=== PATIENT | female | born 1980 ===

== ENCOUNTER 2016-12-11 18:57 | Emergency (ER) | payer SELFPAY ==
[2016-12-11 19:56] VITALS: BP 105/69; PULSE 65; RESP 16; TEMP 98.1; O2SAT 99
--- NOTE | 2016-12-11 20:29 | ED PDOC ---
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 Patient states in the middle of October she was treated for yeast infection with Diflucan and symptoms did resolve. They returned as of a week and a half ago. Patient went to her road design engineer last week and was tested for several STDs and she gets the results on Wednesday. Patient was given rx for terconazole cream, oral flagyl and bactrim but she still has persistent itching. Patient denies any genital rash or sores. She states she is currently sexually active with 1 partner and she has low concern for STD. She denies any abdominal pain, no fever or chills. No N/V/D/C. Patient denies any vaginal pain. Past Medical History Reviewed: Historical Data, Nursing Documentation, Vital Signs Vital Signs: Last Vital Signs Temp 98.1 F 12/11/16 19:54 Pulse 65 12/11/16 19:54 Resp 16 12/11/16 19:54 BP 105/69 12/11/16 19:54 Pulse Ox 99 12/11/16 19:54 - Medical History PMH: No Chronic Diseases - Surgical History Surgical History: No Surg Hx - Family History Family History: States: No Known Family Hx - Living Arrangements Living Arrangements: With Family - Social History Current smoker - smoking cessation education provided: No Alcohol: None Drugs: Denies - Home Medications Home Medications: Ambulatory Orders Medication Instructions Recorded Fluconazole [Diflucan] 150 mg PO ONCE #1 tab 12/11/16 Fluconazole [Diflucan] 200 mg PO ONCE 12/11/16 Sulfamethoxazole/Trimethoprim 1 tab PO BID 12/11/16 [Bactrim DS 800 mg-160 mg] Terconazole 0.8% [Terazol 3] 0.8 apful VG DAILY 12/11/16 metroNIDAZOLE [Flagyl] 500 mg PO BID 12/11/16 - Allergies Allergies/Adverse Reactions: Allergies Allergy/AdvReac Type Severity Reaction Status Date / Time No Known Allergies Allergy Verified 12/11/16 19:54 Review of Systems ROS Statement: Except As Marked, All Systems Reviewed And Found Negative Constitutional: Negative for: Fever, Chills Respiratory: Negative for: Cough Gastrointestinal: Negative for: Nausea, Vomiting, Abdominal Pain, Diarrhea Genitourinary Female: Positive for: Other (external vaginal itching and burning) . Negative for: Dysuria, Frequency, Incontinence, Hematuria Physical Exam - Reviewed Nursing Documentation Reviewed: Yes Vital Signs Reviewed: Yes - Physical Exam Appears: Positive for: Well, Non-toxic, No Acute Distress Head Exam: Positive for: ATRAUMATIC, NORMAL INSPECTION Skin: Positive for: Normal Color. Negative for: Rash Eye Exam: Positive for: Normal appearance, EOMI, PERRL Cardiovascular/Chest: Positive for: Regular Rate, Rhythm Respiratory: Positive for: Normal Breath Sounds Gastrointestinal/Abdominal: Positive for: Soft. Negative for: Tenderness Pelvic Exam: Positive for: External Exam Normal. Negative for: Discharge, Lesions Extremity: Positive for: Normal ROM Neurologic/Psych: Positive for: Alert, Oriented - Laboratory Results Urine POC: Negative Urine dip results: Negative for: Leukocyte Esterase, Blood, Nitrate, Ketones, Glucose, Bilirubin, Protein - ECG O2 Sat by Pulse Oximetry: 99 Pulse Ox Interpretation: Normal Medical Decision Making Medical Decision Makin36 year old with vaginal discomfort Patient was seen by road design engineer last week and follows up this Wednesday for culture and STD testing results. Patient was offered empiric treatment for GC/ CHL but she declined, she prefers to wait for results. Patient already taking oral bactrim and flagyl. Plan: Urine test, urine dip and culture - and dip are negative, culture was sent. Rx diflucan Follow up with ob/gyn as scheduled Wednesday. Disposition - Clinical Impression Clinical Impression: Vaginal candidiasis - Patient ED Disposition Is Patient to be Admitted: No Counseled Patient/Family Regarding: Diagnosis, Need For Followup, Rx Given - Disposition Referrals: [facility] [Outside] Disposition: Routine/Home Disposition Time: 21:22 Condition: STABLE Additional Instructions: Take rx meds as directed. Over the counter vagicaine cream for relief of itching. Follow up as scheduled Wednesday with your road design engineer. Prescriptions: Fluconazole [Diflucan] 150 mg PO ONCE #1 tab Instructions: Vulvovaginal Candidiasis (ED) Print Language: DIVEHI
== END 2016-12-11 21:30 | disposition home or self-care (01) ==
LOC: H.ER 18:57
DX: B37.3 Candidiasis of vulva and vagina (principal)

== ENCOUNTER 2018-02-22 17:36 | Emergency (ER) | payer OTHER ==
[2018-02-22 18:14] VITALS: BP 120/68; PULSE 60; RESP 18; TEMP 97.6; O2SAT 100
--- NOTE | 2018-02-22 18:25 | ED PDOC ---
HPI: Back Time Seen by Provider: 02/22/18 18:25 Chief Complaint (Nursing): Back Pain History Per: Patient History/Exam Limitations: no limitations Additional Complaint(s): 37-year-old female, presents to the emergency department with complaints of back pain x1 week, gradually developed after bending over and picking up something heavy. Patient notes a Hx of similar pain in the past. She is taking Advil at home with minimal relief. Notes pain shoots up and down her spine. She denies any numbness/weakness, nausea/vomiting, symptoms, or any other associated symptoms. No other complaints at this time. Past Medical History Reviewed: Historical Data, Nursing Documentation, Vital Signs Vital Signs: Last Vital Signs Temp 97.6 F 02/22/18 18:12 Pulse 60 02/22/18 18:12 Resp 18 02/22/18 18:12 BP 120/68 02/22/18 18:12 Pulse Ox 100 02/22/18 18:12 - Family History Family History: States: No Known Family Hx - Home Medications Home Medications: Ambulatory Orders Medication Instructions Recorded Fluconazole [Diflucan] 150 mg PO ONCE #1 tab 12/11/16 Fluconazole [Diflucan] 200 mg PO ONCE 12/11/16 Sulfamethoxazole/Trimethoprim 1 tab PO BID 12/11/16 [Bactrim DS 800 mg-160 mg] Terconazole 0.8% [Terazol 3] 0.8 apful VG DAILY 12/11/16 metroNIDAZOLE [Flagyl] 500 mg PO BID 12/11/16 Naproxen 375 mg PO Q8 PRN #21 tablet 02/22/18 diaZEpam [Valium] 5 mg PO Q8 PRN #5 tab 02/22/18 - Allergies Allergies/Adverse Reactions: Allergies Allergy/AdvReac Type Severity Reaction Status Date / Time No Known Allergies Allergy Verified 02/22/18 18:12 Review of Systems Constitutional: Negative for: Fever, Chills Cardiovascular: Negative for: Chest Pain Respiratory: Negative for: Shortness of Breath Gastrointestinal: Negative for: Vomiting Musculoskeletal: Positive for: Back Pain Neurological: Negative for: Weakness, Numbness Physical Exam - Reviewed Nursing Documentation Reviewed: Yes Vital Signs Reviewed: Yes - Physical Exam Appears: Positive for: Non-toxic, No Acute Distress Head Exam: Positive for: ATRAUMATIC, NORMOCEPHALIC Skin: Positive for: Warm, Dry. Negative for: Rash Eye Exam: Positive for: Normal appearance Neck: Positive for: Painless ROM Respiratory: Negative for: Accessory Muscle Use Back: Positive for: Other (paralumbar) Extremity: Positive for: Normal ROM. Negative for: Deformity Neurologic/Psych: Positive for: Alert, Oriented - ECG O2 Sat by Pulse Oximetry: 100 (RA) Pulse Ox Interpretation: Normal Medical Decision Making Medical Decision Making: Plan: * Toradol * U preg * Reassess and Disposition Scribe Attestation: Documented by Anika Espinoza, acting as a scribe for CHRISTIN Haas. Provider Scribe Attestation: All medical record entries made by the Scribe were at my direction and personally dictated by me. I have reviewed the chart and agree that the record accurately reflects my personal performance of the history, physical exam, medical decision making, and the department course for this patient. I have also personally directed, reviewed, and agree with the discharge instructions and disposition. Disposition - Clinical Impression Clinical Impression: Back strain - Patient ED Disposition Is Patient to be Admitted: No - Disposition Referrals: [facility] [Outside] Disposition: Routine/Home Disposition Time: 18:44 Condition: FAIR Prescriptions: diaZEpam [Valium] 5 mg PO Q8 PRN #5 tab PRN Reason: Muscle Spasm Naproxen 375 mg PO Q8 PRN #21 tablet PRN Reason: Pain, Moderate (4-7) Instructions: Low Back Pain in Adults Print Language: [place] ISLAND[place]
== END 2018-02-22 19:22 | disposition home or self-care (01) ==
LOC: H.ER 17:36
DX: S39.012A Strain of muscle, fascia and tendon of lower back, initial encounter (principal); X50.0XXA Overexertion from strenuous movement or load, initial encounter
CPT/HCPCS: 96372; 99283; J1885

== ENCOUNTER 2018-12-02 17:07 | Emergency (ER) | payer SELFPAY ==
[2018-12-02 17:16] VITALS: RESP 16; O2SAT 99
[2018-12-02] MEDS ORDERED: cefTRIAXone (Rocephin) 250 mg Inj IM STA (18:11)
[2018-12-02] MEDS ORDERED: cefTRIAXone (Rocephin) 250 mg Inj ONE (18:41)
[2018-12-02] MEDS ORDERED: Sterile Water 10 ML IV ONE (18:43)
[2018-12-02 18:56] LABS: SQUAMOUS EPITHIAL 1 /hpf (0-5); URINE BILIRUBIN NEGATIVE (NEGATIVE); URINE BLOOD NEGATIVE (NEGATIVE); URINE CLARITY SLIGHTY-CLOUDY (Clear); URINE COLOR YELLOW (YELLOW); URINE GLUCOSE (UA) NEG (NEGATIVE); URINE LEUKOCYTE ESTERASE NEG Leu/uL (Negative); URINE PROTEIN NEGATIVE (NEGATIVE); URINE UROBILINOGEN 0.2-1.0 mg/dL (0.2-1.0)
--- NOTE | 2018-12-02 18:57 | ED PDOC ---
HPI: Female Pain Time Seen by Provider: 12/02/18 17:50 Chief Complaint (Nursing): Female Genitourinary Chief Complaint (Provider): Vaginal Pain History Per: Patient History/Exam Limitations: no limitations Onset/Duration Of Symptoms: Days Current Symptoms Are (Timing): Still Present Associated Symptoms: Chills Additional Complaint(s): 38 year old female with history of herpes presents to the ED for an evaluation of vaginal discharge and burning sensation upon urination onset for past week. Patient noticed vaginal burning sensation approximately one week ago and developed yellow discharge 2 days ago that has been persistent with foul order. Also reports of chills and burning upon urine. Otherwise, patient denies any medication prior to arrival, urinary frequency, hesitancy, fever, night sweats or ulcerations. Past Medical History Reviewed: Historical Data, Nursing Documentation, Vital Signs Vital Signs: Last Vital Signs Temp 98.7 F 12/02/18 17:15 Pulse 83 12/02/18 17:15 Resp 16 12/02/18 17:15 BP 136/79 12/02/18 17:15 Pulse Ox 99 12/02/18 17:15 Primary Care Provider: Doctor,Conversion - Medical History Other PMH: Herpes - Family History Family History: States: Unknown Family Hx - Immunization History Hx Tetanus Toxoid Vaccination: No Hx Influenza Vaccination: No Hx Pneumococcal Vaccination: No - Home Medications Home Medications: Ambulatory Orders Medication Instructions Recorded Fluconazole [Diflucan] 150 mg PO ONCE #1 tab 12/11/16 Fluconazole [Diflucan] 200 mg PO ONCE 12/11/16 Sulfamethoxazole/Trimethoprim 1 tab PO BID 12/11/16 [Bactrim DS 800 mg-160 mg] Terconazole 0.8% [Terazol 3] 0.8 apful VG DAILY 12/11/16 metroNIDAZOLE [Flagyl] 500 mg PO BID 12/11/16 Naproxen 375 mg PO Q8 PRN #21 tablet 02/22/18 diaZEpam [Valium] 5 mg PO Q8 PRN #5 tab 02/22/18 Metronidazole [Flagyl] 500 mg PO BID 7 Days tablet 12/02/18 - Allergies Allergies/Adverse Reactions: Allergies Allergy/AdvReac Type Severity Reaction Status Date / Time No Known Allergies Allergy Verified 12/02/18 17:19 Review of Systems ROS Statement: Except As Marked, All Systems Reviewed And Found Negative Constitutional: Positive for: Chills. Negative for: Fever, Sweats Genitourinary Female: Positive for: Dysuria, Vaginal Discharge. Negative for: Frequency Physical Exam - Reviewed Nursing Documentation Reviewed: Yes Vital Signs Reviewed: Yes - Physical Exam Appears: Positive for: No Acute Distress Gastrointestinal/Abdominal: Positive for: Normal Exam Pelvic Exam: Positive for: External Exam Normal (no ulcerations; no cervical tenderness or adnexal masses or tenderness), Bimanual Exam Normal, Cervicitis (on internal exam with minimal yellow discharge in vaginal vault ), Other ([employer] was RN Lorenzo ) Neurological/Psych: Positive for: Awake, Alert, Normal Tone, Oriented (x3) - Laboratory Results Urine dip results: Negative for: Leukocyte Esterase, Nitrate - ECG O2 Sat by Pulse Oximetry: 99 (RA) Pulse Ox Interpretation: Normal Medical Decision Making Medical Decision Making: Time: 18:09 Impression: vaginal discharge and dysuria Plan: ED Urine ED urine dipstick Vaginal swab for GC chlamydia Urine culture UA Flagyl 500mg PO Rocephin 250mg IM Azithromycin 1gm PO 19:08 UA negative for leukocyte esterase and nitrate. Her WBC is 1K Upon provider evaluation patient is medically stable, and requires no further treatment in the ED at this time. Patient will be discharged home. Counseling was provided and all questions were answered regarding diagnosis. There is agreement to discharge plan. Return if symptoms persist or worsen. Scribe Attestation: Documented by Main Hardin, acting as a scribe for Noemi Ortega PA-C. Provider Scribe Attestation: All medical record entries made by the Scribe were at my direction and personally dictated by me. I have reviewed the chart and agree that the record accurately reflects my personal performance of the history, physical exam, medical decision making, and the department course for this patient. I have also personally directed, reviewed, and agree with the discharge instructions and disposition. Disposition - Clinical Impression Clinical Impression: Female genitourinary symptoms - Patient ED Disposition Is Patient to be Admitted: No - Disposition [facility] Disposition: Routine/Home Disposition Time: 19:08 Condition: STABLE Additional Instructions: Follow up with your warper creeler as scheduled within 1 - 2 weeks. Complete full course of antibiotic as prescribed. Prescriptions: Metronidazole [Flagyl] 500 mg PO BID 7 Days tablet Instructions: Chlamydia and Gonorrhea, Bacterial Vaginosis (DC) Forms: [employer] (Irish) Print Language: UZBEK
[2018-12-02 19:28] VITALS: BP 119/89; PULSE 76; TEMP 98.3
== END 2018-12-02 19:26 | disposition home or self-care (01) ==
LOC: H.ER 17:07
DX: N89.8 Other specified noninflammatory disorders of vagina (principal)
CPT/HCPCS: 81003; 81025; 87086; 87491; 87591; 96372; 99283; J0696